=== PATIENT | male | born 1980 | race Two or more races ===

== ENCOUNTER 2017-12-30 17:17 | Emergency (ER) | payer MEDICAID ==
[~2017-12-30] VITALS: Ht 180.3 cm; Wt 58.0 kg
[~2017-12-30 17:17] MED LIST: NO HOME MEDS
[2017-12-30] MEDS ORDERED: CLOT12CR TOP (17:57)
[2017-12-30 18:17] VITALS: BP 136/74
== END 2017-12-30 18:20 | disposition home or self-care (01) ==
LOC: ER 17:17
DX: B35.3 Tinea pedis (principal); G89.29 Other chronic pain; F15.10 Other stimulant abuse, uncomplicated; Z88.5 Allergy status to narcotic agent; Z88.8 Allergy status to other drugs, medicaments and biological substances; Z79.899 Other long term (current) drug therapy; Z59.0 Homelessness
CPT/HCPCS: 99283

== ENCOUNTER 2018-01-06 18:00 | Emergency (ER) | payer MEDICAID ==
[~2018-01-06] VITALS: Ht 180.3 cm; Wt 63.2 kg
[~2018-01-06 18:00] MED LIST changes: +CLOT12CR TOP
[2018-01-06 18:35] VITALS: BP 117/63
[2018-01-06] MEDS ORDERED: IBUP-1984 PO (19:02)
[2018-01-07] MEDS ORDERED: HYDR28CR14 TOP (07:32)
[2018-01-07] MEDS ORDERED: CYCL-1 PO (07:32)
[2018-01-07] MEDS ORDERED: NAPR-56 PO (07:32)
[2018-01-07] MEDS ORDERED: PERM60CR19 TP (07:49)
== END 2018-01-06 19:43 | disposition home or self-care (01) ==
LOC: ER 18:00
DX: R07.81 Pleurodynia (principal); R07.89 Other chest pain; R05 Cough; G89.29 Other chronic pain; F15.10 Other stimulant abuse, uncomplicated; Z88.8 Allergy status to other drugs, medicaments and biological substances; Z88.5 Allergy status to narcotic agent; Z79.899 Other long term (current) drug therapy
CPT/HCPCS: 71045; 99283

== ENCOUNTER 2018-01-07 06:57 | Emergency (ER) | payer MEDICAID ==
[~2018-01-07] VITALS: Ht 180.3 cm; Wt 62.9 kg
[~2018-01-07 06:57] MED LIST changes: +IBUP-1984 PO
[2018-01-07 07:03] VITALS: BP 139/74
[2018-01-07] MEDS ORDERED: cyclobenzaprine 10mg tablet PO ONE (07:30)
[2018-01-07] MEDS ORDERED: dexamethasone 4mg tablet PO ONE (07:30)
[2018-01-07] MEDS ORDERED: naproxen 500mg tablet PO ONE (07:30)
[2018-01-07] MEDS ORDERED: NAPR-56 PO (07:32)
[2018-01-07] MEDS ORDERED: CYCL-1 PO (07:32)
[2018-01-07] MEDS ORDERED: HYDR28CR14 TOP (07:32)
[2018-01-07] MEDS ORDERED: diphenhydrAMINE 25mg capsule PO ONE (07:35)
[2018-01-07] MEDS ORDERED: PERM60CR19 TP (07:49)
[2018-01-07] MEDS ORDERED: hydrocortisone 1% cream 28gm TP SCH (08:00)
== END 2018-01-07 07:57 | disposition home or self-care (01) ==
LOC: ER 06:58
DX: L25.9 Unspecified contact dermatitis, unspecified cause (principal); R07.81 Pleurodynia; G89.29 Other chronic pain; F15.10 Other stimulant abuse, uncomplicated; Z88.5 Allergy status to narcotic agent; Z88.6 Allergy status to analgesic agent; Z79.899 Other long term (current) drug therapy
CPT/HCPCS: 99284; J8540; Q0163

== ENCOUNTER 2018-07-23 12:13 | Emergency (ER) | payer MEDICAID ==
[~2018-07-23 12:13] MED LIST changes: +CLIN300C85 PO; +CYCL-1 PO; +HYDR28CR14 TOP; -IBUP-1984 PO; +MYCOL30CR TP
[2018-07-23] MEDS ORDERED: CLIN300C85 PO (22:14)
== END 2018-07-23 12:15 | disposition left against medical advice (07) ==
LOC: ER 12:14
DX: M79.646 Pain in unspecified finger(s) (principal); Z53.21 Procedure and treatment not carried out due to patient leaving prior to being seen by health care provider

== ENCOUNTER 2018-07-23 20:08 | Emergency (ER) | payer MEDICAID ==
[~2018-07-23] VITALS: Ht 180.3 cm; Wt 58.0 kg
[2018-07-23 20:15] VITALS: BP 115/90
[2018-07-23] MEDS ORDERED: CLIN300C85 PO (22:14)
== END 2018-07-23 22:27 | disposition home or self-care (01) ==
LOC: ER 20:09
DX: L03.113 Cellulitis of right upper limb (principal); G89.29 Other chronic pain; F15.90 Other stimulant use, unspecified, uncomplicated; Z88.5 Allergy status to narcotic agent; Z79.2 Long term (current) use of antibiotics; Z79.899 Other long term (current) drug therapy
CPT/HCPCS: 99283